=== PATIENT | female | born 1960 | race Caucasian/White ===

== ENCOUNTER 2018-10-09 19:53 | Emergency (ER) | payer OTHER ==
[~2018-10-09] VITALS: Ht 149.9 cm; Wt 48.1 kg
[~2018-10-09 19:53] MED LIST: ULTRAM50 MG PO
[2018-10-10] MEDS ORDERED: FLAGYL500MG PO (06:06)
[2018-10-10] MEDS ORDERED: LEVSIN/SL0.125 MG SL (06:06)
[2018-10-10] MEDS ORDERED: CIPRO500 MG PO (06:06)
== END 2018-10-10 06:24 | disposition home or self-care (01) ==
LOC: ER 19:53
DX: K52.9 Noninfective gastroenteritis and colitis, unspecified (principal)

== ENCOUNTER 2019-02-23 10:59 | Emergency (ER) | payer OTHER ==
[~2019-02-23] VITALS: Ht 149.9 cm; Wt 49.9 kg
[~2019-02-23 10:59] MED LIST changes: +CIPRO500 MG PO; +FLAGYL500MG PO; +LEVSIN/SL0.125 MG SL
== END 2019-02-23 12:36 | disposition home or self-care (01) ==
LOC: ER 10:59
DX: R06.09 Other forms of dyspnea (principal)

== ENCOUNTER 2025-01-14 11:56 | Inpatient (IN) | payer OTHER ==
[~2025-01-14] VITALS: Ht 147.3 cm; Wt 88.5 kg
--- NOTE | 2025-01-14 13:08 | NUR ---
PTE REFIERE DOLOR EN LA PELVIC Y DOLOR EN LA PIERNA DERECHA DESDE HACE 5 MURILLO , SE LE RUSSELL S/V Y SE DOCUEMTA.SE MANTIENE EN GIO DE ESPERA
[2025-01-14] MEDS ORDERED: PIPERACILLIN/TAZOBACTAM SODIUM 2.25 GM VIAL IV STA (14:43)
[2025-01-14] MEDS ORDERED: PROMETHAZINE HCL 50 MG/ML AMPUL IM STA (14:44)
[2025-01-14] MEDS ORDERED: MEPERIDINE HCL/PF 50 MG/ML VIAL IM STA (14:44)
[2025-01-14] MEDS ORDERED: 0.9 % SODIUM CHLORIDE 1,000 ML IV SCH ×2 (15:00→18:30)
[2025-01-14 15:53] LABS: HEMOGLOBIN 13.3 g/dL (12.0-15.00); MEAN CELL VOLUME 82.2 fL (80.00-100.00); MEAN CORPUSCULAR HEMOGLOBIN 27.9 pg (27.00-32.0); PLATELET COUNT 291 K/uL (150-450); RED BLOOD COUNT 4.75 M/uL (4.00-6.00); RED CELL DISTRIBUTION WIDTH 14.2 % (11.5-14.5)
--- NOTE | 2025-01-14 16:02 | NUR ---
PTE ALERTA Y ORIENTADA X3 ES EVALUADA POR EL DR. GONZÁLES. SE ORIENTA SOBRE TRATAMEINTO, VERBALIZA ENTENDER. SE CANALIZA, COLECTAN MUESTRAS DE LAB Y SE AMDINISTRAN MEDICAMENTO JONI ORDEN MEDICA BAJO MEDIDAS ASEPTICAS. SE NOTIFICA CT PENDIENTE.
[2025-01-14 16:09] LABS: INR 1.04; PROTHROMBIN TIME 11.3 SECONDS (9.0-11.5)
[2025-01-14 16:17] LABS: ALBUMIN 3.8 gm/dL (3.4-5.0); BILIRUBIN TOTAL 0.61 mg/dL (0.3-1.2); BILIRUBIN,CONJUGATED 0.14 mg/dL (0.0-0.2); BILIRUBIN,UNCONJUGATED 0.47 mg/dL (0.0-0.6); CALCIUM 9.8 mg/dL (8.5-10.1); CREATININE SERUM 0.8 mg/dL (0.55-1.02); GFR 71.76; POTASSIUM 3.66 mEq/L (3.5-5.1); TOTAL PROTEIN 8.5 gm/dL (6.4-8.2)
[2025-01-14 16:54] LABS: PH,URINE 5.5 (5.0-8.0); URINE APPEARANCE Clear; URINE BILIRRUBIN Negative (NEGATIVE); URINE BLOOD Moderate; URINE COLOR Yellow; URINE GLUCOSE Negative (NEGATIVE); URINE LEUKOCYTE Small; URINE NITRATE Negative; URINE PROTEIN Trace (NEGATIVE); URINE UROBILINOGEN 0.2 E.U./dl
[2025-01-14 16:58] LABS: URINE BACTERIA 141.9 uL (0.0-1933); URINE EPITHELIAL CELLS 18.2 uL (0.0-38.8); URINE RBC 66.8 uL (0.0-20.8); URINE WBC 188.8 uL (0.0-23.2)
[2025-01-14 17:11] LABS: URINE CAST 1.32 uL (0.0-1.40); URINE KETONE 80 (NEGATIVE); URINE MUCUS SCANT
[2025-01-14] MEDS ORDERED: MORPHINE SULFATE 2 MG/ML SYRINGE IV STA (18:21)
[2025-01-14] MEDS ORDERED: ACETAMINOPHEN 500 MG GEL..CAP PO PRN (18:30)
[2025-01-14] MEDS ORDERED: ONDANSETRON HCL 4 MG in 0.9 % SODIUM CHLORIDE 50 ML IV PRN (18:30)
[2025-01-14] MEDS ORDERED: METRONIDAZOLE/SODIUM CHLORIDE 100 ML IV SCH (18:30)
[2025-01-14] MEDS ORDERED: CIPROFLOXACIN IN 5 % DEXTROSE 400 MG/200 ML PIGGYBAG IV ONE (19:59)
[2025-01-14] MEDS ORDERED: MORPHINE SULFATE 2 MG/ML CARTRIDGE IV SCH (20:00)
[2025-01-14] MEDS ORDERED: CIPROFLOXACIN IN 5 % DEXTROSE 200 ML IV SCH (21:00)
[2025-01-14 21:58] VITALS: BP 123/69; O2SAT 97
[2025-01-15] VITALS: BP 121/65; O2SAT 97
[2025-01-15 08:24] VITALS: BP 102/64
[2025-01-15] MEDS ORDERED: METOPROLOL SUCCINATE 25 MG TAB.SR.24H PO SCH (09:00)
[2025-01-15] MEDS ORDERED: ENOXAPARIN SODIUM 40 MG/0.4 ML SYRINGE SUBCUTANEO SCH (09:00)
[2025-01-15] MEDS ORDERED: FAMOTIDINE/PF 20 MG in 0.9 % SODIUM CHLORIDE 8 ML IV PUSH SCH (09:00)
[2025-01-15] MEDS ORDERED: TRAMADOL HCL 50 MG TABLET PO STA (09:48)
[2025-01-15] MEDS ORDERED: TRAMADOL HCL 50 MG TABLET PO PRN (10:00)
[2025-01-15] MEDS ORDERED: MORPHINE SULFATE 4 MG/ML CARTRIDGE IV PRN (13:00)
[2025-01-15 15:15] LABS: PH,URINE 5.5 (5.0-8.0); URINE APPEARANCE Clear; URINE BILIRRUBIN Negative (NEGATIVE); URINE BLOOD Small; URINE COLOR Yellow; URINE GLUCOSE Negative (NEGATIVE); URINE LEUKOCYTE Moderate; URINE NITRATE Negative; URINE PROTEIN 30 (NEGATIVE)
[2025-01-15 15:20] LABS: URINE BACTERIA 59.9 uL (0.0-1933); URINE EPITHELIAL CELLS 20.1 uL (0.0-38.8); URINE RBC 74.9 uL (0.0-20.8); URINE WBC 103.5 uL (0.0-23.2)
[2025-01-15 15:44] LABS: URINE CAST 0.58 uL (0.0-1.40); URINE KETONE 80 (NEGATIVE)
[2025-01-15 15:45] LABS: URINE EPITHELIAL CELLS 0-4 /HPF
[2025-01-15 17:07] VITALS: BP 110/62; O2SAT 97
[2025-01-16] VITALS: BP 101/59; O2SAT 96
[2025-01-16 06:10] LABS: HEMATOCRIT 34.5 % (36.0-45.00); HEMOGLOBIN 11.9 g/dL (12.0-15.00); MEAN CELL VOLUME 82.5 fL (80.00-100.00); MEAN CORPUSCULAR HEMOGLOBIN 28.4 pg (27.00-32.0); MEAN CORPUSCULAR HGB CONC 34.5 g/dl (32.0-36.0); PLATELET COUNT 240 K/uL (150-450); RED BLOOD COUNT 4.18 M/uL (4.00-6.00); RED CELL DISTRIBUTION WIDTH 13.8 % (11.5-14.5)
[2025-01-16 07:10] LABS: ALBUMIN 3.1 gm/dL (3.4-5.0); BILIRUBIN TOTAL 0.65 mg/dL (0.3-1.2); CALCIUM 8.6 mg/dL (8.5-10.1); CREATININE SERUM 0.61 mg/dL (0.55-1.02); GFR 98.13; GLOBULINA 3.3 G/DL (2.4-3.5); MAGNESIUM 1.6 mg/dL (1.8-2.4); PHOSPHOROUS 3.1 mg/dL (2.5-4.9); POTASSIUM 3.69 mEq/L (3.5-5.1); TOTAL PROTEIN 6.4 gm/dL (6.4-8.2)
[2025-01-16 07:12] LABS: C-REACTIVE PROTEIN 11.9 MG/DL (0.00-0.29)
[2025-01-16 09:27] VITALS: BP 110/50
[2025-01-16 17:26] VITALS: BP 99/56; O2SAT 95
[2025-01-17 02:17] VITALS: BP 100/52
[2025-01-17 09:03] VITALS: BP 109/50
[2025-01-17 16:20] VITALS: BP 125/47; O2SAT 96
[2025-01-17] MEDS ORDERED: MEPERIDINE HCL/PF 25 MG/ML VIAL IM PRN (20:00)
[2025-01-18 02:33] VITALS: BP 97/56; O2SAT 98
[2025-01-18 08:46] LABS: URINE APPEARANCE Clear; URINE BILIRRUBIN Negative (NEGATIVE); URINE BLOOD Negative; URINE COLOR Yellow; URINE GLUCOSE Negative (NEGATIVE); URINE KETONE 15 (NEGATIVE); URINE LEUKOCYTE Trace; URINE NITRATE Negative; URINE PROTEIN Negative (NEGATIVE)
[2025-01-18 08:53] LABS: URINE BACTERIA 4.8 uL (0.0-1933); URINE RBC 10.1 uL (0.0-20.8); URINE WBC 13.2 uL (0.0-23.2)
[2025-01-18 09:03] VITALS: BP 137/75; O2SAT 99
[2025-01-18 09:38] LABS: URINE EPITHELIAL CELLS 0.6 uL (0.0-38.8)
[2025-01-18 16:00] VITALS: BP 124/55; O2SAT 99
[2025-01-19 02:27] VITALS: BP 120/65
[2025-01-19 06:26] LABS: HEMATOCRIT 35.1 % (36.0-45.00); HEMOGLOBIN 12.1 g/dL (12.0-15.00); MEAN CELL VOLUME 81.8 fL (80.00-100.00); MEAN CORPUSCULAR HEMOGLOBIN 28.3 pg (27.00-32.0); MEAN CORPUSCULAR HGB CONC 34.6 g/dl (32.0-36.0); PLATELET COUNT 291 K/uL (150-450); RED BLOOD COUNT 4.29 M/uL (4.00-6.00); RED CELL DISTRIBUTION WIDTH 13.5 % (11.5-14.5)
[2025-01-19 06:38] LABS: ERYTHROCYTE SEDIMENTATION RATE 27 mm/hr
[2025-01-19 07:16] LABS: ALBUMIN 2.8 gm/dL (3.4-5.0); BILIRUBIN TOTAL 0.21 mg/dL (0.3-1.2); CALCIUM 8.7 mg/dL (8.5-10.1); CREATININE SERUM 0.57 mg/dL (0.55-1.02); GFR 106.12; GLOBULINA 3.1 G/DL (2.4-3.5); POTASSIUM 3.78 mEq/L (3.5-5.1); TOTAL PROTEIN 5.9 gm/dL (6.4-8.2)
[2025-01-19 07:23] LABS: C-REACTIVE PROTEIN 2.65 MG/DL (0.00-0.29)
[2025-01-19 09:33] VITALS: BP 133/71; O2SAT 98
== END 2025-01-19 11:46 | disposition home or self-care (01) | DRG 392 ==
LOC: ER 11:56 → MEDI 18:50
PROVIDERS: General Practice; Internal Medicine; Internal Medicine Infectious Disease; ADMIT Specialist; ATTEND Specialist
PROC: BW21ZZZ Computerized Tomography (CT Scan) of Abdomen and Pelvis (ICD-10-PCS; principal; 2025-01-14)
PROC: BT4JZZZ Ultrasonography of Kidneys and Bladder (ICD-10-PCS; 2025-01-17)
DX: K57.32 Diverticulitis of large intestine without perforation or abscess without bleeding (principal); I10 Essential (primary) hypertension; K21.9 Gastro-esophageal reflux disease without esophagitis; E86.0 Dehydration